=== PATIENT | female | born 1990 | race Hispanic/Latino ===

== ENCOUNTER 2017-05-15 08:33 | Inpatient (IN) | payer MEDICAID ==
[~2017-05-15] VITALS: Ht 160 cm; Wt 94.8 kg
[~2017-05-15 08:33] MED LIST: ACYCLOVIR200 MG PO; ACYCLOVIR400 MG PO; AVELOX400 MG OR; BACTRIM DS1 TAB OR; CEPHALEXIN500 M1 OR; CEPHALEXIN500 MG OR; CEPHALEXIN500 MG PO; CIPRO500 MG OR; CIPRO500 MG PO; FLUZONE SPLT1 M1 IM; GENTAMICIN15 ML/BTL OP; GLYBURIDE1.25 MG PO; INTEGRA F PO; KENALOG15 GM/TUBE EX; LORTAB 5 OR; LORTAB 7.5 PO; NAPROSYN500 MG OR; NO; NO HOME MEDS; PATANOL0.1 % OP; PRENATA3 OR; PROMETH/COD1 ML OR; ROBITUSSIN AC OR; TUBERSOL5 MG/0.1 M ID; ULTRAM50 MG OR; ZITHROMAX500 MG OR; ZOFRAN ODT4 MG PO; [UNRECOGNIZED DRUG - OTHER] PO
[2017-05-15] MEDS ORDERED: VALTREX500 MG PO (14:02)
[2017-05-15] MEDS ORDERED: FERROUS SULF325 M3 PO (14:02)
[2017-05-15] MEDS ORDERED: PRENATAL MULTIV PO (14:05)
[2017-05-16] VITALS (12 sets, daily range): BP systolic 112–139; BP diastolic 60–84
[2017-05-16 01:05] LABS: BARBITURATES NEGATIVE (NEGATIVE); COCAINE NEGATIVE (NEGATIVE); METHADONE NEGATIVE (NEGATIVE); OXCYCODONE NEGATIVE (NEGATIVE); TETRAHYDROCANNABIONOL NEGATIVE (NEGATIVE); TRICYLIC ANTIDEPRESSANTS NEGATIVE (NEGATIVE)
[2017-05-17 00:23] VITALS: BP 124/66
[2017-05-17 03:55] VITALS: BP 116/66
[2017-05-17 05:29] LABS: HEMATOCRIT 26.7 % (37.0-47.0); HEMOGLOBIN 9.7 g/dl (12.0-16.0); IMMATURE GRANULOCYTES 1.8 % (0.0-1.0); MEAN CORPUSCULAR HGB 34.9 pG CALC (26.0-32.0); MEAN CORPUSCULAR HGB CONC 36.3 g/L CALC (32.0-36.0); NEUT# 13.07 thou/uL (2.00-7.15); RED BLOOD COUNT 2.78 mill/uL (4.20-5.60); RED CELL DISTRI WIDTH 18.1 % (11.5-15.5)
[2017-05-17 07:18] VITALS: BP 120/73
[2017-05-17 15:18] VITALS: BP 135/83
[2017-05-18 08:38] VITALS: BP 131/79
[2017-05-18] MEDS ORDERED: IBUPROFEN600 MG PO (10:01)
[2017-05-18] MEDS ORDERED: LORTAB 7.5-3251 TAB PO (10:02)
== END 2017-05-18 11:15 | disposition home or self-care (01) | DRG 766 ==
LOC: OB 05-16 00:06 → EDBD 05-16 07:30 → OB 05-16 09:10
PROVIDERS: ADMIT Obstetrics & Gynecology; ATTEND Obstetrics & Gynecology
PROC: 10D00Z1 Extraction of Products of Conception, Low, Open Approach (ICD-10-PCS; principal; 2017-05-16)
DX: O34.211 Maternal care for low transverse scar from previous cesarean delivery (principal); N85.8 Other specified noninflammatory disorders of uterus; Z3A.39 39 weeks gestation of pregnancy; Z37.0 Single live birth
CPT/HCPCS: J2270

== ENCOUNTER 2017-11-28 09:00 | Emergency (ER) | payer MEDICAID ==
[~2017-11-28] VITALS: Ht 152.4 cm; Wt 95.0 kg
[~2017-11-28 09:00] MED LIST changes: +FERROUS SULF325 M3 PO; +IBUPROFEN600 MG PO; +LORTAB 7.5-3251 TAB PO; +PRENATAL MULTIV PO; +VALTREX500 MG PO
[2017-11-28 09:42] LABS: URINE BLOOD DIPSTICK MODERATE (NEGATIVE); URINE GLUCOSE - DIPSTICK NEGATIVE (NEGATIVE); URINE KETONE NEGATIVE (NEGATIVE); URINE LEUK ESTERASE NEGATIVE (NEGATIVE); URINE NITRITE - DIPSTICK NEGATIVE (Negative); URINE PROTEIN - DIPSTICK NEGATIVE (NEG-TRACE); URINE SPECIFIC GRAVITY >=1.030
[2017-11-28 09:42] LABS: HEMATOCRIT 28.3 % (37.0-47.0); HEMOGLOBIN 10.1 g/dl (12.0-16.0); MEAN CELL VOLUME 91.3 fL CALC (80.0-100.0); MEAN CORPUSCULAR HGB 32.6 pG CALC (26.0-32.0); MEAN CORPUSCULAR HGB CONC 35.7 g/L CALC (32.0-36.0); NEUT# 12.91 thou/uL (2.00-7.15); RED BLOOD COUNT 3.1 mill/uL (4.20-5.60); RED CELL DISTRI WIDTH 20.2 % (11.5-15.5)
[2017-11-28 09:48] LABS: ANION GAP 16 (6-22 (CALC)); BUN 8 mg/dL (7-17); BUN/CREATININE RATIO 17 (12-20 (CALC)); CARBON DIOXIDE 20 mmol/l (22-30); CHLORIDE 106 mmol/l (95-108); CREATININE 0.5 mg/dL (0.5-1.0); GFR > 60 ML/MIN (>=60 (CALC)); GFR FOR AFR.AMER. > 60 ML/MIN (>=60 (CALC)); POTASSIUM 3.9 mmol/l (3.5-5.1); SODIUM 139 mmol/l (137-146)
[2017-11-28 10:09] LABS: URINE BILIRUBIN - DIPSTICK SMALL (NEGATIVE); URINE CLARITY SL CLOUDY; URINE COLOR DK. YELLOW
[2017-11-28 10:11] LABS: URINE EPITHELIAL CELLS FEW EPI/hpf (0-FEW); URINE RBC 25-50 RBC/hpf (0-5)
[2017-11-28 12:09] VITALS: BP 95/49
== END 2017-11-28 12:30 | disposition home or self-care (01) | DRG 782 ==
LOC: ED 09:00
PROVIDERS: Family Medicine
DX: O46.91 Antepartum hemorrhage, unspecified, first trimester (principal); Z3A.11 11 weeks gestation of pregnancy

== ENCOUNTER 2018-04-18 01:39 | Emergency (ER) | payer MEDICAID ==
[~2018-04-18] VITALS: Ht 160 cm; Wt 93.0 kg
[2018-04-18 02:30] VITALS: BP 134/76
== END 2018-04-18 02:33 ==
LOC: ED 01:39
DX: O26.893 Other specified pregnancy related conditions, third trimester (principal); O30.093 Twin pregnancy, unable to determine number of placenta and number of amniotic sacs, third trimester; Z3A.31 31 weeks gestation of pregnancy; R10.2 Pelvic and perineal pain; R10.30 Lower abdominal pain, unspecified

== ENCOUNTER 2021-07-15 13:17 | Observation (INO) | payer MEDICAID ==
[2021-07-15] VITALS (7 sets, daily range): BP systolic 102–115; BP diastolic 56–74
[~2021-07-15] VITALS: Ht 160 cm; Wt 86.0 kg
--- NOTE | 2021-07-15 13:30 | NUR ---
PT AMB TO ROOM IN NO DISTRESS
[2021-07-15 14:21] LABS: URINE BLOOD DIPSTICK SMALL (NEGATIVE); URINE COLOR YELLOW; URINE GLUCOSE - DIPSTICK NEGATIVE (NEGATIVE); URINE KETONE NEGATIVE (NEGATIVE); URINE PH 5.5 (4.5-8.0); URINE PROTEIN - DIPSTICK 30 mg/dL (NEG-TRACE)
[2021-07-15 14:25] LABS: URINE BILIRUBIN - DIPSTICK SMALL (NEGATIVE); URINE LEUK ESTERASE SMALL (NEGATIVE); URINE NITRITE - DIPSTICK POSITIVE (Negative)
[2021-07-15 14:26] LABS: URINE RBC 0-2 RBC/hpf (0-5); URINE SQUAMOUS EPITHELIAL CELL FEW EPI/hpf (0-FEW)
[2021-07-15 14:34] LABS: IMMATURE GRANULOCYTES 0.9 % (0.0-5.0); MEAN CELL VOLUME 91.9 fL CALC (80.0-100.0); MEAN CORPUSCULAR HGB 30.5 pG CALC (26.0-32.0); MEAN CORPUSCULAR HGB CONC 33.2 g/dL CAL (32.0-36.0); NEUT# 20.46 thou/uL (2.00-7.15); RED BLOOD COUNT 2.23 mill/uL (4.20-5.60); RED CELL DISTRI WIDTH 22.9 % (11.5-15.5)
[2021-07-15 14:48] LABS: HEMATOCRIT 20.5 % (37.0-47.0); HEMOGLOBIN 6.8 g/dl (12.0-16.0)
[2021-07-15 14:50] LABS: ALBUMIN 4.2 g/dL (3.2-5.0); ALKALINE PHOSPHATASE 70 u/l (38-126); ANION GAP 14 (6-22 (CALC)); BILIRUBIN, TOTAL 4.2 mg/dL (0.0-1.4); BUN 10 mg/dL (7-17); BUN/CREATININE RATIO 18 (12-20 (CALC)); CARBON DIOXIDE 24 mmol/l (22-30); CHLORIDE 100 mmol/l (95-108); CREATININE 0.6 mg/dL (0.5-1.0); GFR > 60 ML/MIN (>=60 (CALC)); GFR FOR AFR.AMER. > 60 ML/MIN (>=60 (CALC)); POTASSIUM 3.5 mmol/l (3.5-5.1); SGOT/AST 29 u/l (14-36); SODIUM 135 mmol/l (137-146); TOTAL PROTEIN 7.7 g/dL (6.3-8.2)
--- NOTE | 2021-07-15 15:07 | NUR ---
MD AT BEDSIDE TO DISCUSS RESULTS AND POC.
--- NOTE | 2021-07-15 15:42 | NUR ---
TO RADIOLOGY VIA STRETCHER.
--- NOTE | 2021-07-15 16:59 | NUR ---
1ST UNIT PRBC INITIATED. PT INSTRUCTED S/S TRANSFUSION REACTION.
--- NOTE | 2021-07-15 18:54 | NUR ---
REPORT CALLED TO KAREN NOWAK
--- NOTE | 2021-07-15 19:07 | NUR ---
REPORT RECIVED, ASSUMED CARE
--- NOTE | 2021-07-15 19:12 | NUR ---
PT TAKEN BY STRETCHER UP TO ASSIGNED ROOM ON MED SURG
--- NOTE | 2021-07-15 19:15 | NUR ---
PT RECEIVED FROM ED TO ROOM 260. ARRIVES VIA STRETCHER ACCOMPANIED BY REEMA NOWAK. PT AMBULATORY TO BED. GAIT UNSTEADY. PT DENIES PAIN AT THIS TIME. ORIENTED TO UNIT, ROOM, CALL GALEAS, LIGHTS, TV. ICE WATER PROVIDED. CALL GALEAS WITHIN REACH. AGREES TO CALL PRN.
--- NOTE | 2021-07-15 23:25 | NUR ---
PHYSICAL ASSESMENT COMPLETE. PT C/O PAIN AND DISCOMFORT. PT STATES I HAVE HAD BODY ACHES AND A HEADACHE ALL DAY. SCHEDULED MEDICATIONS AND PRN MEDICATION ADMINISTERED, SEE E-MAR. PT RECIEVING 2 ND BAG OF PRBC AND TOLERATING IT WELL. PT DENIES ANY NEEDS AT THIS TIME. PLAN OF CARE REVIEWED, PT DENIES QUESTIONS, VERBALIZES UNDERSTANDING. ITEMS WITHIN REACH, BED LOCKED IN LOW POSITION W/ BEDRAILS UP X2. CALL GALEAS WITHIN REACH, AGREES TO CALL PRN.
[2021-07-16] VITALS (8 sets, daily range): BP systolic 108–127; BP diastolic 60–80
--- NOTE | 2021-07-16 | NUR ---
PT LAYING IN BED WITH EYES CLOSED, APPEARS TO BE SLEEPING, APPEARS COMFORTABLE AND IN NO DISTRESS. RESPIRATIONS REGULAR AND UNLABORED. ITEMS REMAIN WITHIN REACH, CALL GALEAS REMAINS WITHIN REACH. BED REMAINS LOCKED AND IN LOW POSITION WITH BEDRAILS UP X2. WILL CONTINUE TO MONITOR.
[2021-07-16 00:13] LABS: URINE BILIRUBIN - DIPSTICK NEGATIVE (NEGATIVE); URINE BLOOD DIPSTICK TRACE-INTACT (NEGATIVE); URINE COLOR YELLOW; URINE GLUCOSE - DIPSTICK NEGATIVE (NEGATIVE); URINE KETONE NEGATIVE (NEGATIVE); URINE LEUK ESTERASE SMALL (NEGATIVE); URINE NITRITE - DIPSTICK POSITIVE (Negative); URINE PROTEIN - DIPSTICK NEGATIVE (NEG-TRACE); URINE UROBILINOGEN - DIPSTICK 0.2 E.U./dL (0.2)
[2021-07-16 05:05] LABS: HEMATOCRIT 22.3 % (37.0-47.0); HEMOGLOBIN 7.5 g/dl (12.0-16.0); MEAN CORPUSCULAR HGB 30.6 pG CALC (26.0-32.0); MEAN CORPUSCULAR HGB CONC 33.6 g/dL CAL (32.0-36.0); RED BLOOD COUNT 2.45 mill/uL (4.20-5.60); RED CELL DISTRI WIDTH 19.8 % (11.5-15.5)
[2021-07-16 05:26] LABS: ANION GAP 9 (6-22 (CALC)); BUN 8 mg/dL (7-17); BUN/CREATININE RATIO 17 (12-20 (CALC)); CARBON DIOXIDE 24 mmol/l (22-30); CHLORIDE 108 mmol/l (95-108); CREATININE 0.5 mg/dL (0.5-1.0); GFR > 60 ML/MIN (>=60 (CALC)); GFR FOR AFR.AMER. > 60 ML/MIN (>=60 (CALC)); MAGNESIUM 1.8 mg/dL (1.6-2.3); POTASSIUM 3.8 mmol/l (3.5-5.1); SODIUM 137 mmol/l (137-146)
[2021-07-16 07:43] LABS: BILIRUBIN, TOTAL 2.3 mg/dL (0.0-1.4)
--- NOTE | 2021-07-16 07:54 | NUR ---
REPORT RECEIVED FROM ELIU JONES. PT AWAKE ALERT AND APPROPRIATE. DENIES PAIN, SOB OR DISCOMFORT. POC REVIEWED, CALL LIGHT WITHIN REACH. INSTRUCTED PT TO CALL FOR ASSISTANCE, VERBALIZES UNDERSTANDING.
--- NOTE | 2021-07-16 12:00 | NUR ---
PT RESTING IN BED WATCHING TV. VSS, DENIES PAIN, SOB OR DISCOMFORT. CALL LIGHT WITHIN REACH. INSTRUCTED PT TO CALL FOR ASSISTANCE, VERBALIZES UNDERSTANDING.
--- NOTE | 2021-07-16 16:46 | NUR ---
PT RESTING IN BED WITH VISITOR AT BS. PT C/O FEELING HEAVY ON CHEST. ENCOURAGED TO INCREASE ADL'S AND ALSO TO TAKE DEEP BREATHES. PT DENIES PAIN, ANEMIA REVIEWED, STATES UNDERSTANDING OF HGB LAB RANGE WITH THE NEED FOR TRANSFUSION AND LARGE AMOUNT OF VOLUME ENTERING THE CIRCULATORY SYSTEM. WILL CONTINUE TO MONITOR VS AND NOTIFY MD IF NEEDED.
--- NOTE | 2021-07-16 19:15 | NUR ---
PT AWAKE LOOKING ON CELL-PHONE. NO S/O DISTRESS NOTED. SHE DENIED ANY NEEDS AT THIS TIME. CALL LIGHT IS W/IN REACH AND PT ENCOURAGED TO CALL NEEDS ARISE.
--- NOTE | 2021-07-16 19:34 | NUR ---
PT ASSESSMENT COMPLETED AT THIS TIME. SHE REPORTS HAVING HAD COUGH AND SORE THROAT LAST WEEK, MILD SOB AND YEST VOMITING. SHE REPORTS NOW ONLY FREQUENT URINATION AND MILD PAIN IN LLBACK. DENIES ANY OTHER NEEDS AT THIS TIME. CALL LIGHT W/IN REACH AND PT ENCOURAGED TO CALL NEEDS ARISE.
--- NOTE | 2021-07-16 23:25 | NUR ---
PT UP IN RESTROOM, PT WAS ASKED IF SHE NEEDS ASSISTANCE, DENIED AT THIS TIME.
--- NOTE | 2021-07-16 23:33 | NUR ---
PT BACK IN RECLINER SITTING UPRIGHT WITH LIGHTS AND TV ON.
[2021-07-17] VITALS: BP 121/77
[2021-07-17 04:00] VITALS: BP 105/72
--- NOTE | 2021-07-17 04:18 | NUR ---
CUT OFF MACHINE UNLOADER JUST LEAVING ROOM FROM GETTING V/S. PT WAS SLEEPING, NO S/O DISTRESS, SHE DENIES ANY NEEDS AT THIS TIME. CALL LIGHT AT SIDE.
[2021-07-17 06:03] LABS: HEMATOCRIT 24.1 % (37.0-47.0); HEMOGLOBIN 8.1 g/dl (12.0-16.0); IMMATURE GRANULOCYTES 0.8 % (0.0-5.0); MEAN CELL VOLUME 90.3 fL CALC (80.0-100.0); MEAN CORPUSCULAR HGB 30.3 pG CALC (26.0-32.0); MEAN CORPUSCULAR HGB CONC 33.6 g/dL CAL (32.0-36.0); NEUT# 7.87 thou/uL (2.00-7.15); RED BLOOD COUNT 2.67 mill/uL (4.20-5.60); RED CELL DISTRI WIDTH 20.3 % (11.5-15.5)
[2021-07-17 06:23] LABS: ALKALINE PHOSPHATASE 62 u/l (38-126); ANION GAP 11 (6-22 (CALC)); BILIRUBIN, TOTAL 1.7 mg/dL (0.0-1.4); BUN 7 mg/dL (7-17); BUN/CREATININE RATIO 14 (12-20 (CALC)); CARBON DIOXIDE 25 mmol/l (22-30); CHLORIDE 106 mmol/l (95-108); CREATININE 0.5 mg/dL (0.5-1.0); GFR > 60 ML/MIN (>=60 (CALC)); GFR FOR AFR.AMER. > 60 ML/MIN (>=60 (CALC)); POTASSIUM 3.6 mmol/l (3.5-5.1); SGOT/AST 23 u/l (14-36); SODIUM 137 mmol/l (137-146); TOTAL PROTEIN 6.4 g/dL (6.3-8.2)
[2021-07-17 06:27] LABS: ALBUMIN 3.3 g/dL (3.2-5.0)
[2021-07-17 07:00] VITALS: BP 97/63
--- NOTE | 2021-07-17 07:00 | NUR ---
BEDSIDE REPORT RECEIVED. PT LYING IN BED ASLEEP. AWOKEN TO SN ENTERING ROOM, ASSESSMENT PERFORMED. NO COMPLAINTS. WILL CONTINUE TO MONITOR.
[2021-07-17] MEDS ORDERED: KEFLEX500 MG PO (10:06)
--- NOTE | 2021-07-17 11:16 | NUR ---
Discharge instructions given. Patient verbalizes understanding of same. Discharged in stable condition via Wheelchair to Home with family. All belongings sent with pt.
== END 2021-07-17 11:15 | disposition home or self-care (01) ==
LOC: ED 13:17 → ED-I 16:50 → ED 17:15 → MS2 17:16
PROVIDERS: Nurse Practitioner; ADMIT Internal Medicine; ATTEND Internal Medicine
DX: A41.9 Sepsis, unspecified organism (principal); N12 Tubulo-interstitial nephritis, not specified as acute or chronic; D62 Acute posthemorrhagic anemia; N92.0 Excessive and frequent menstruation with regular cycle; R73.9 Hyperglycemia, unspecified; E80.6 Other disorders of bilirubin metabolism; B96.20 Unspecified Escherichia coli [E. coli] as the cause of diseases classified elsewhere; Z20.822 Contact with and (suspected) exposure to COVID-19
CPT/HCPCS: G0378; J1756; P9016

== ENCOUNTER 2022-04-25 17:27 | Observation (INO) | payer MEDICAID ==
[~2022-04-25] VITALS: Ht 162.6 cm; Wt 94.0 kg
[~2022-04-25 17:27] MED LIST changes: +KEFLEX500 MG PO
--- NOTE | 2022-04-25 17:30 | NUR ---
PT IN ROOM, PT AMBULATED FROM WAITING ROOM WITH A STEADY GATE.
[2022-04-25 17:41] VITALS: BP 123/80
[2022-04-25] MEDS ORDERED: IRON325 M1 PO (17:45)
[2022-04-25 17:46] VITALS: BP 124/89
[2022-04-25 18:02] LABS: IMMATURE GRANULOCYTES 0.3 % (0.0-5.0); MEAN CELL VOLUME 90.2 fL CALC (80.0-100.0); MEAN CORPUSCULAR HGB 31.2 pG CALC (26.0-32.0); MEAN CORPUSCULAR HGB CONC 34.6 g/dL CAL (32.0-36.0); RED BLOOD COUNT 4.07 mill/uL (4.20-5.60); RED CELL DISTRI WIDTH 19.9 % (11.5-15.5)
[2022-04-25 18:04] LABS: HEMATOCRIT 36.7 % (37.0-47.0); HEMOGLOBIN 12.7 g/dl (12.0-16.0)
[2022-04-25 18:07] LABS: HCG SERUM/URINE (NEG/POS) NEGATIVE (NEGATIVE)
[2022-04-25 18:21] LABS: ALBUMIN 4.9 g/dL (3.2-5.0); ALKALINE PHOSPHATASE 79 u/l (38-126); ANION GAP 15 (6-22 (CALC)); BILIRUBIN, TOTAL 3.7 mg/dL (0.0-1.4); BUN 14 mg/dL (7-17); BUN/CREATININE RATIO 23 (12-20 (CALC)); CARBON DIOXIDE 21 mmol/l (22-30); CHLORIDE 104 mmol/l (95-108); CREATININE 0.6 mg/dL (0.5-1.0); GFR FOR AFR.AMER. > 60 ML/MIN (>=60 (CALC)); GFR OTHER RACES > 60 ML/MIN (>=60 (CALC)); LIPASE 103 u/l (23-300); POTASSIUM 3.8 mmol/l (3.5-5.1); SODIUM 136 mmol/l (137-146); TOTAL PROTEIN 8.5 g/dL (6.3-8.2)
[2022-04-25 18:22] LABS: SGOT/AST 59 u/l (14-36)
--- NOTE | 2022-04-25 18:30 | NUR ---
PT RECEIVING IV FLUIDS AND AWAITING LAB AND RADIOLOGY RESULTS, WILL CONT TO MONITOR.
--- NOTE | 2022-04-25 19:37 | NUR ---
PT IN ROOM ON MONITOR AWAITING RESULTS OF CT SCAN, WILL CONT TO MONITOR.
[2022-04-25 20:26] LABS: URINE BILIRUBIN - DIPSTICK NEGATIVE (NEGATIVE); URINE BLOOD DIPSTICK NEGATIVE (NEGATIVE); URINE COLOR YELLOW; URINE GLUCOSE - DIPSTICK NEGATIVE (NEGATIVE); URINE KETONE NEGATIVE (NEGATIVE); URINE LEUK ESTERASE NEGATIVE (NEGATIVE); URINE PROTEIN - DIPSTICK NEGATIVE (NEG-TRACE); URINE UROBILINOGEN - DIPSTICK 0.2 E.U./dL (0.2)
[2022-04-25 20:29] LABS: URINE NITRITE - DIPSTICK NEGATIVE (Negative)
--- NOTE | 2022-04-25 21:13 | NUR ---
FIRST ATTEMPT TOP CALL REPORT MADE.
--- NOTE | 2022-04-25 21:20 | NUR ---
Admission Note Report Given to: ANDREW NOWAK Transported by: X Wheelchair Stretcher Transported with: X Nurse Transporter [id number] Consultant Location: ICU X [facility] PT TRANSPORTED TO MED SURG VIA WHEEL CHAIR WITH IV FLUIDS RUNNING.
--- NOTE | 2022-04-25 21:20 | NUR ---
REPORT CALLED TO ANDREW NOWAK.
[2022-04-25 21:32] VITALS: BP 114/65
--- NOTE | 2022-04-25 22:00 | NUR ---
PATIENT ADMITTED FROM ER VIA WHEELCHAIR WITH ER STAFF IN ATTENDANCE. PATIENT IS ABLE TO TRANSFER HERSELF TO THE BED. PATIENT IS AWAKE ALERT AND ORIENTEDX3. PATIENT STATES THAT SHE HAS BEEN HAVING DIARRHEA STOOLS AND NAUSEA AND VOMITTING ALL DAY. STATES THAT SHE HAS BEEN HAVING THIS DIARRHEA PROBLEM FOR SEVERAL WEEK NOW. PATIENT PROVIDED WITH CLEAR LIQUIDS AND TOLERATING WELL AT THIS TIME. ABD IS SOFT WITH ACTIVE BS. LUNGS ARE CLEAR. IVF NS PATENT AND INFUSING VIA LEFT AC SITE AT 100CC/HR. DENIES ANY NAUSEA OR PAIN AT THIS TIME. ORIENTED TO ROOM AND SURROUNDINGS. INSTRUCTED ON USE OF NURSE CALL LIGHT SYSTEM AND TV REMOTE. SAFETY PRECAUTIONS REINFORCED. CALL LIGHT IN REACH. WILL CONT TO MONITOR.
--- NOTE | 2022-04-26 | NUR ---
RESTING IN BED-NO COMPLAINTS AT THIS TIME-ANABELA HUNG ORDERED. UP TO THE BR-STEADY ON HER FEET. CALL LIGHT IN REACH. WILL CONT TO MONITOR.
--- NOTE | 2022-04-26 04:00 | NUR ---
PATIENT RESTING IN BED-EYES ARE CLOSED AND RESPS ARE EVEN AND UNLABORED. IVF PATENT AND INFUSING AT 100CC/HR. CALL LIGHT IN REACH. WILL CONT TO MONITOR.
[2022-04-26 04:35] VITALS: BP 103/53
[2022-04-26 04:38] VITALS: BP 103/53
[2022-04-26 05:21] LABS: IMMATURE GRANULOCYTES 0.2 % (0.0-5.0); MEAN CELL VOLUME 91.4 fL CALC (80.0-100.0); MEAN CORPUSCULAR HGB 31.8 pG CALC (26.0-32.0); MEAN CORPUSCULAR HGB CONC 34.8 g/dL CAL (32.0-36.0); NEUT# 8.67 thou/uL (2.00-7.15); RED BLOOD COUNT 2.8 mill/uL (4.20-5.60); RED CELL DISTRI WIDTH 19.7 % (11.5-15.5)
[2022-04-26 05:26] LABS: HEMATOCRIT 25.6 % (37.0-47.0); HEMOGLOBIN 8.9 g/dl (12.0-16.0)
[2022-04-26 05:45] LABS: ALKALINE PHOSPHATASE 46 u/l (38-126); BILIRUBIN, TOTAL 3.7 mg/dL (0.0-1.4); BUN 11 mg/dL (7-17); BUN/CREATININE RATIO 18 (12-20 (CALC)); CALCULATED LDLCHOLESTEROL 36 mg/dL (62-129 (CALC)); CARBON DIOXIDE 25 mmol/l (22-30); CHLORIDE 106 mmol/l (95-108); CHOLESTEROL HDL RATIO 4.7 (<4.4 (CALC)); CREATININE 0.6 mg/dL (0.5-1.0); GFR FOR AFR.AMER. > 60 ML/MIN (>=60 (CALC)); GFR OTHER RACES > 60 ML/MIN (>=60 (CALC)); HDL CHOLESTEROL 22 mg/dL (>=40); LIPASE 77 u/l (23-300); MAGNESIUM 1.5 mg/dL (1.6-2.3); SGOT/AST 32 u/l (14-36); SODIUM 137 mmol/l (137-146); TOTAL CHOLESTEROL 104 mg/dl (0-199); TOTAL TRIGLYCERIDES 231 mg/dl (30-149); VLDL CHOLESTROL 46 mg/dl (1-41 (CALC))
[2022-04-26 05:46] LABS: ANION GAP 9 (6-22 (CALC)); POTASSIUM 3.4 mmol/l (3.5-5.1)
[2022-04-26 05:50] LABS: ALBUMIN 3.5 g/dL (3.2-5.0); TOTAL PROTEIN 6.1 g/dL (6.3-8.2)
[2022-04-26 06:56] VITALS: BP 92/48
--- NOTE | 2022-04-26 07:25 | NUR ---
SHIFT CHANGE REPORT, PT AWAKE ALERT AND ORIENTED RESTING IN BED, NO C/O DISCOMFORT AT THIS TIME, IVF INFUSING, CALL GALEAS IN REACH AND BED LOCKED IN LOWEST POSITION.
[2022-04-26 10:47] LABS: MANUAL DIFFERENTIAL YES
[2022-04-26 11:24] LABS: BAND 1 % (0-8)
--- NOTE | 2022-04-26 11:28 | NUR ---
PT WAS TRANSPORTED OFF UNIT VIA W/C TO PROCEDURE AND RETURNED TO UNIT POST PROCEDURE, SITTING UP IN BED AT THIS TIME, ALL NEEDS ADDRESSED.
[2022-04-26 11:51] LABS: BILIRUBIN, TOTAL 3.5 mg/dL (0.0-1.4)
--- NOTE | 2022-04-26 12:00 | NUR ---
SITTING UP IN BED, TOLERATING LIQUID MEAL, AWAITING COMPLETION OF IV MEDS TO HAVE SHOWER.
[2022-04-26 15:58] VITALS: BP 96/54
[2022-04-26] MEDS ORDERED: ZOFRAN4 MG/TAB PO (16:07)
--- NOTE | 2022-04-26 19:03 | NUR ---
Discharge instructions given. Patient verbalizes understanding of same. Discharged in good condition via Wheelchair to Home with family. All belongings sent with pt.
== END 2022-04-26 19:00 | disposition home or self-care (01) ==
LOC: ED 17:27 → ED-I 20:00 → MS2 20:24 → ED 20:24 → MS2 04-26 19:00
PROVIDERS: Nurse Practitioner; ADMIT Internal Medicine; ATTEND Internal Medicine
DX: A04.0 Enteropathogenic Escherichia coli infection (principal); D50.9 Iron deficiency anemia, unspecified; E87.6 Hypokalemia; E83.42 Hypomagnesemia; E86.0 Dehydration; E66.9 Obesity, unspecified; Z68.35 Body mass index [BMI] 35.0-35.9, adult; Z20.822 Contact with and (suspected) exposure to COVID-19
CPT/HCPCS: G0378; J1650; J3475; Q9967; S0164

== ENCOUNTER 2024-09-03 16:00 | Emergency (ER) | payer MEDICAID ==
[~2024-09-03] VITALS: Ht 162.6 cm; Wt 87.5 kg
[~2024-09-03 16:00] MED LIST changes: +B121000 MC1 PO; +FERROUS SULFAT325 MG PO; +FLUOXETINE HYDR20 MG PO; +FOLIC ACID800 MCG PO; +IRON325 M1 PO; +ZOFRAN4 MG/TAB PO
[2024-09-03] MEDS ORDERED: KETOROLAC TROMETHAMINE 15 MG/ML SDV IV ONE (16:20)
[2024-09-03] MEDS ORDERED: ONDANSETRON HCl 4 MG/2 ML SDV IV ONE ×2 (16:20→18:15)
[2024-09-03] MEDS ORDERED: SODIUM CHLORIDE 0.9% 1,000 ML IV ONE (16:20)
[2024-09-03 16:40] LABS: URINE BLOOD DIPSTICK Negative (NEGATIVE); URINE GLUCOSE - DIPSTICK 250 mg/dL (NEGATIVE); URINE KETONE 15 mg/dL (NEGATIVE); URINE LEUK ESTERASE Negative (NEGATIVE); URINE PROTEIN - DIPSTICK 30 mg/dL (NEG-TRACE); URINE SPECIFIC GRAVITY 1.025; URINE UROBILINOGEN - DIPSTICK 0.2 E.U./dL (0.2)
[2024-09-03 16:46] LABS: URINE COLOR Dark yellow; URINE NITRITE - DIPSTICK Positive (Negative)
[2024-09-03 16:48] LABS: BASO% 0.2 % (0-3); EOS% 0.5 % (0-8); HEMATOCRIT 29.7 % (37.0-47.0); HEMOGLOBIN 10.6 g/dl (12.0-16.0); IMMATURE GRANULOCYTES 0.3 % (0.0-5.0); LYMPH% 11.7 % (15-41); MEAN CELL VOLUME 92.2 fL CALC (80.0-100.0); MEAN CORPUSCULAR HGB 32.9 pG CALC (26.0-32.0); MEAN CORPUSCULAR HGB CONC 35.7 g/dL CAL (32.0-36.0); MONO% 3.9 % (2-13); NEUT# 15.87 thou/uL (2.00-7.15); NEUT% 83.4 % (42-76); RED BLOOD COUNT 3.22 mill/uL (4.20-5.60); RED CELL DISTRI WIDTH 21.7 % (11.5-15.5)
[2024-09-03 16:53] LABS: URINE BACTERIA MANY hpf
[2024-09-03 16:54] LABS: URINE SQUAMOUS EPITHELIAL CELL FEW EPI/hpf (0-FEW)
[2024-09-03 16:59] LABS: CREATININE 0.5 mg/dL (0.5-1.0); POTASSIUM 3.4 mmol/l (3.5-5.1)
[2024-09-03 17:00] LABS: ALBUMIN 4.9 g/dL (3.2-5.0); BILIRUBIN, TOTAL 5.3 mg/dL (0.02-1.3)
[2024-09-03] MEDS ORDERED: ISOVUE-300 (Iopamidol) 100 ML SDV IV ONE (17:10)
[2024-09-03] MEDS ORDERED: LIDOcaine HCl 1% (Local Anesth.) 20 ML VIAL STI STA (18:08)
[2024-09-03] MEDS ORDERED: POVIDONE IODINE 0.5 OZ/BTL TOP ONE (18:10)
[2024-09-03] MEDS ORDERED: CEPHALEXIN500 M1 PO (18:15)
[2024-09-03] MEDS ORDERED: HYDROmorphone HCL 2 MG/AMP IV ONE (18:15)
[2024-09-03] MEDS ORDERED: BACTRIM DS1 TAB PO (18:15)
[2024-09-03] MEDS ORDERED: TRAMADOL HYDROC50 M1 PO (18:36)
[2024-09-03] MEDS ORDERED: NAPROXEN500 MG PO (18:36)
[2024-09-03 19:08] VITALS: BP 143/86
== END 2024-09-03 19:10 | disposition home or self-care (01) ==
LOC: ED 16:00
PROVIDERS: Family Medicine
DX: N75.0 Cyst of Bartholin's gland (principal); N39.0 Urinary tract infection, site not specified
CPT/HCPCS: J1171; J1885; J2405; Q9967